=== PATIENT | female | born 1990 | race Caucasian/White ===

== ENCOUNTER → 2019-11-27 | Outpatient (CLI) | payer BC | END | disposition home or self-care (01) | LOC: STAR 15:29 | PROVIDERS: ATTEND Obstetrics & Gynecology | DX: Z01.812 Encounter for preprocedural laboratory examination (principal); Z20.828 Contact with and (suspected) exposure to other viral communicable diseases | CPT/HCPCS: 36415; 87635 ==

== ENCOUNTER 2019-12-01 04:14 | Inpatient (IN) | payer SELFPAY ==
[~2019-12-01] VITALS: Ht 165.1 cm; Wt 83.0 kg
[2019-12-01] MEDS ORDERED: OXYTOCIN 30U/ 0.9% NaCL 500ML 500 ML IV PRN (08:01)
[2019-12-01] MEDS ORDERED: OXYTOCIN 30U/ 0.9% NaCL 500ML 500 ML IV ONE (08:01)
[2019-12-01] MEDS ORDERED: D5%-LACTATED RINGERS 1,000 ML IV SCH (08:01)
[2019-12-01] MEDS ORDERED: NEWBORN KIT ONE (08:19)
[2019-12-01] MEDS ORDERED: OXYTOCIN 30U/ 0.9% NaCL 500ML 500 ML ONE (08:21)
[2019-12-01] MEDS: LACTATED RINGERS 1,000 ML IV SCH ×4 (08:27→21:30)
[2019-12-01 08:29] LABS: BASOPHILS # (AUTO) 0.05 x10^3/uL (0-0.1); BASOPHILS % (AUTO) 0 % (0-1); EOSINOPHILS # (AUTO) 0.06 x10^3/uL (0-0.4); EOSINOPHILS % (AUTO) 1 % (1-7); LYMPHOCYTES # (AUTO) 2.39 x10^3/uL (1-3.4); LYMPHOCYTES % (AUTO) 19 % (22-44); MD NO; MEAN CORPUSCULAR HEMOGLOBIN 31.4 pg (27.0-34.8); MEAN CORPUSCULAR HGB CONC 33.1 g/dL (32.4-35.8); MEAN CORPUSCULAR VOLUME 95.1 fL (80-100); MEAN PLATELET VOLUME 10.2 fL (7.4-10.4); MONOCYTES # (AUTO) 1.07 x10^3/uL (0.2-0.8); MONOCYTES % (AUTO) 9 % (2-9); NEUTROPHILS % (AUTO) 71 % (42-75); PLATELET COUNT 194 x10^3/uL (130-400); RED BLOOD COUNT 4.55 x10^6/uL (3.82-5.3); RED CELL DISTRIBUTION WIDTH 13.4 % (9.6-15.2)
[2019-12-01] MEDS ORDERED: ONDANSETRON 2MG/ML, 2ML IVPush PRN ×2 (08:30→22:00)
[2019-12-01] MEDS ORDERED: METOCLOPRAMIDE 5 MG/ML, 2ML IVPush PRN (08:30)
[2019-12-01] MEDS ORDERED: FENTANYL PF 100 MCG/2ML IV PRN (08:30)
[2019-12-01] MEDS ORDERED: TERBUTALINE 1 MG/ML, 1ML IVPush PRN (08:30)
[2019-12-01] MEDS ORDERED: CALCIUM CARBONATE 500 MG TAB.CHEW PO PRN (08:30)
[2019-12-01] MEDS ORDERED: FENTANYL PF 100 MCG/2ML IVPush PRN (08:30)
[2019-12-01] MEDS ORDERED: TERBUTALINE 1 MG/ML, 1ML SQ PRN (08:30)
[2019-12-01] MEDS ORDERED: SODIUM CITRATE/CITRIC ACID 30 ML UDC PO PRN (08:30)
[2019-12-01 10:00] LABS: AMPHETAMINE SCREEN, URINE Negative (Negative); BARBITURATE SCREEN, URINE Negative (Negative); BENZODIAZEPINE SCREEN, URINE Negative (Negative); CANNABINOID SCREEN, URINE Negative (Negative); COCAINE SCREEN, URINE Negative (Negative); METHADONE SCREEN, URINE Negative (Negative); OPIATE SCREEN, URINE Negative (Negative)
[2019-12-01] MEDS ORDERED: FENTANYL PF 100 MCG/2ML ONE (19:40)
[2019-12-01] MEDS ORDERED: LACTATED RINGERS 1,000 ML INTUTE SCH (20:00)
[2019-12-01] MEDS ORDERED: LACTATED RINGERS 1,000 ML INTUTE PRN (20:00)
[2019-12-01] MEDS ORDERED: FENTANYL/BUPIV./NS/PF 250 ML EPIDCONT ONE (21:22)
[2019-12-01] MEDS ORDERED: BUPIVACAINE 0.25% ONE ×2 (21:22→21:24)
[2019-12-01] MEDS ORDERED: LIDOCAINE/PF 1.5%-EPI 1:200K, 30ML ONE (21:24)
[2019-12-01] MEDS ORDERED: FENTANYL/BUPIV./NS/PF 250 ML EPIDCONT SCH (21:43)
[2019-12-01] MEDS ORDERED: LACTATED RINGERS 1,000 ML IV SCH (21:43)
[2019-12-01] MEDS ORDERED: DIPHENHYDRAMINE 50 MG/ML, 1ML IVPush PRN (22:00)
[2019-12-01] MEDS ORDERED: EPHEDRINE 50 MG/ML, 1ML IVPush PRN (22:00)
[2019-12-01] MEDS ORDERED: LACTATED RINGERS 1,000 ML IVBOLUS PRN (22:00)
[2019-12-01] MEDS ORDERED: NALOXONE 0.4 MG/ML, 1ML IVPush PRN (22:00)
[2019-12-02] MEDS ORDERED: METOCLOPRAMIDE 5 MG/ML, 2ML ONE (01:42)
[2019-12-02] MEDS ORDERED: LIDOCAINE/MPF 2%-EPI 1:200K, 20 ML ONE (01:57)
[2019-12-02] MEDS ORDERED: LACTATED RINGERS 1,000 ML IVBOLUS ONE (02:00)
[2019-12-02] MEDS: OXYTOCIN 30U/ 0.9% NaCL 500ML 500 ML IV SCH ×3 (02:01→22:01)
[2019-12-02] MEDS: LACTATED RINGERS 1,000 ML IV SCH ×6 (02:01→22:01)
[2019-12-02] MEDS ORDERED: morphine SULFATE/PF 0.5 MG/ML, 10ML ONE (02:06)
[2019-12-02] MEDS ORDERED: DEXAMETHASONE 4 MG/ML, 1ML ONE (02:07)
[2019-12-02] MEDS ORDERED: OXYTOCIN 10 UNITS/ML, 1ML ONE (02:07)
[2019-12-02] MEDS ORDERED: ONDANSETRON 2MG/ML, 2ML ONE (02:07)
[2019-12-02] MEDS ORDERED: KETOROLAC 30 MG/1 ML ONE (02:07)
[2019-12-02] MEDS ORDERED: CEFAZOLIN 1,000 MG ONE (02:19)
[2019-12-02] MEDS ORDERED: WATER-INJECTION,STERILE 10 ML IV ONE (02:19)
[2019-12-02] MEDS ORDERED: ONDANSETRON 2MG/ML, 2ML IV PRN (02:30)
[2019-12-02] MEDS ORDERED: METHYLERGONOVINE 0.2 MG/ML IM PRN (02:30)
[2019-12-02] MEDS ORDERED: morphine SULFATE 10 MG/ML, 1ML IVPush PRN (02:30)
[2019-12-02] MEDS ORDERED: MORPHINE SULFATE 4 MG/ML, 1ML IVPush PRN (02:30)
[2019-12-02] MEDS ORDERED: AZITHROMYCIN 500 MG in SODIUM CHLORIDE 0.9% 250 ML IV ONE (02:30)
[2019-12-02] MEDS ORDERED: CARBOPROST TROMETHAMINE 250 MCG/ML, 1ML IM PRN (02:30)
[2019-12-02] MEDS ORDERED: MISOPROSTOL 200 MCG TABLET PR PRN (02:30)
[2019-12-02] MEDS ORDERED: ACETAMINOPHEN 325 MG TABLET PO PRN (02:30)
[2019-12-02] MEDS ORDERED: MISOPROSTOL 200 MCG TABLET ONE (04:09)
[2019-12-02 05:00] VITALS: BP 90/56
[2019-12-02] MEDS ORDERED: ONDANSETRON 2MG/ML, 2ML IVPush PRN (05:00)
[2019-12-02] MEDS ORDERED: EPHEDRINE 50 MG/ML, 1ML IVPush PRN (05:00)
[2019-12-02] MEDS ORDERED: DIPHENHYDRAMINE 50 MG/ML, 1ML IV PRN (05:00)
[2019-12-02] MEDS ORDERED: NO SEDATIVES, TRANQUILIZERS OR ANTIEMETICS XX SCH (05:00)
[2019-12-02] MEDS ORDERED: NALOXONE 0.4 MG/ML, 1ML IV PRN (05:00)
[2019-12-02] MEDS ORDERED: OXYcodone/APAP 5/325MG TABLET PO PRN (05:00)
[2019-12-02] MEDS: PRENATAL VIT/IRON/FA 1 EACH TABLET PO SCH (08:12)
[2019-12-02] MEDS: KETOROLAC 30 MG/1 ML IVPush SCH ×3 (08:12→19:50)
[2019-12-02] MEDS: OXYcodone/APAP 5/325MG TABLET PO PRN ×5 (08:15→21:33)
[2019-12-02 10:08] LABS: MEAN CORPUSCULAR HEMOGLOBIN 31.1 pg (27.0-34.8); MEAN CORPUSCULAR HGB CONC 32.7 g/dL (32.4-35.8); MEAN CORPUSCULAR VOLUME 95.1 fL (80-100); MEAN PLATELET VOLUME 10.3 fL (7.4-10.4); PLATELET COUNT 168 x10^3/uL (130-400); RED BLOOD COUNT 4.12 x10^6/uL (3.82-5.3); RED CELL DISTRIBUTION WIDTH 13.3 % (9.6-15.2)
[2019-12-02 10:34] LABS: MD YES
[2019-12-02 10:36] LABS: <PLATELET ESTIMATE> ADEQUATE; <PLT MORPHOLOGY> NORMAL PLT MORPH; <RBC MORPHOLOGY> NORMAL; BAND#(MANUAL) 1.31 x10^3/uL; BANDS%(MANUAL) 6 % (0-7); LYMPH#(MANUAL) 1.09 x10^3/uL (1-3.4); LYMPHS% (MANUAL) 5 % (22-44); MONOS#(MANUAL) 0.44 x10^3/uL (0.3-2.7); MONOS% (MANUAL) 2 % (2-9); SEG#(MANUAL) 18.97 x10^3/uL (1.8-6.8); SEGS% (MANUAL) 87 % (42-75)
[2019-12-02 12:50] VITALS: BP 109/63
[2019-12-02 16:00] VITALS: BP 102/65
[2019-12-02 19:22] VITALS: BP 107/71
[2019-12-02] MEDS: DOCUSATE 100 MG CAPSULE PO PRN (19:50)
[2019-12-03 00:20] VITALS: BP 102/60
[2019-12-03] MEDS: KETOROLAC 30 MG/1 ML IVPush SCH ×2 (01:49→07:50)
[2019-12-03] MEDS: OXYcodone/APAP 5/325MG TABLET PO PRN ×6 (01:50→22:45)
[2019-12-03] MEDS: LACTATED RINGERS 1,000 ML IV SCH ×3 (02:01→19:00)
[2019-12-03 07:45] VITALS: BP 102/65
[2019-12-03] MEDS: PRENATAL VIT/IRON/FA 1 EACH TABLET PO SCH (07:50)
[2019-12-03] MEDS: IBUPROFEN 600 MG TABLET PO PRN ×2 (14:27→20:53)
[2019-12-03] MEDS: OXYTOCIN 30U/ 0.9% NaCL 500ML 500 ML IV SCH (19:00)
[2019-12-03 20:06] VITALS: BP 117/77
[2019-12-03] MEDS: SIMETHICONE 80 MG CHEW TAB PO PRN (20:53)
[2019-12-03] MEDS: DOCUSATE 100 MG CAPSULE PO PRN (20:53)
[2019-12-04] MEDS: LACTATED RINGERS 1,000 ML IV SCH ×2 (02:01→04:01)
[2019-12-04] MEDS: IBUPROFEN 600 MG TABLET PO PRN (03:02)
[2019-12-04] MEDS: OXYcodone/APAP 5/325MG TABLET PO PRN ×3 (03:02→12:27)
[2019-12-04] MEDS: OXYTOCIN 30U/ 0.9% NaCL 500ML 500 ML IV SCH (04:01)
[2019-12-04 07:15] VITALS: BP 113/77
[2019-12-04] MEDS: DOCUSATE 100 MG CAPSULE PO PRN (07:30)
[2019-12-04] MEDS: PRENATAL VIT/IRON/FA 1 EACH TABLET PO SCH (07:30)
[2019-12-04] MEDS: SIMETHICONE 80 MG CHEW TAB PO PRN (07:31)
[2019-12-04] MEDS ORDERED: SENN-92 PO (08:04)
[2019-12-04] MEDS ORDERED: HYDR-3240 PO (08:04)
[2019-12-04] MEDS ORDERED: IBUP-1222 PO (08:04)
== END 2019-12-04 12:35 | disposition home or self-care (01) | DRG 788 ==
LOC: LDIP 07:57 → 2NW 12-02 04:50
PROVIDERS: ADMIT Obstetrics & Gynecology; ATTEND Obstetrics & Gynecology
PROC: 10D00Z1 Extraction of Products of Conception, Low, Open Approach (ICD-10-PCS; principal; 2019-12-02)
DX: O62.1 Secondary uterine inertia (principal); O69.1XX0 Labor and delivery complicated by cord around neck, with compression, not applicable or unspecified; O76 Abnormality in fetal heart rate and rhythm complicating labor and delivery; Z37.0 Single live birth; Z3A.40 40 weeks gestation of pregnancy
CPT/HCPCS: 36415; J7121; 80307; 85025; 86592; 86850; 86900; G0378; J0456; J0690; J1100; J1885; J2274; J2405; J3490; J2590; J2765; J3010; J7050; J7120